=== PATIENT | male | born 1960 | race Caucasian/White ===

== ENCOUNTER 2023-01-02 13:48 | Inpatient (IN) | payer SELFPAY ==
[~2023-01-02] VITALS: Ht 182.9 cm; Wt 96.2 kg
[2023-01-02 13:48] VITALS: BP_SYST 159
[2023-01-02] MEDS ORDERED: KETOROLAC TROMETHAMINE 30 MG VIAL IVP ONE (14:15)
[2023-01-02 14:49] LABS: BASOPHILS # (AUTO) 0.1 K/uL (0.0-0.2); BASOPHILS % (AUTO) 0.6 % (0.0-2.0); EOSINOPHILS # (AUTO) 0.3 K/uL (0.0-0.4); EOSINOPHILS % (AUTO) 2.7 % (0.0-4.0); HEMATOCRIT 34.3 % (36-54); HEMOGLOBIN 11.4 g/dL (14.0-18.0); LYMPHOCYTES # (AUTO) 1.4 K/uL (1.0-5.5); LYMPHOCYTES % (AUTO) 12.8 % (20.5-51.5); MEAN CORPUSCULAR HEMOGLOBIN 30 pg (27-31); MEAN CORPUSCULAR HGB CONC 33 % (32-36); MEAN CORPUSCULAR VOLUME 91 fL (79.0-98.0); MONOCYTES # (AUTO) 0.8 K/uL (0.0-1.0); MONOCYTES % (AUTO) 7.3 % (1.7-9.3); NEUTROPHILS # (AUTO) 8.2 K/uL (1.8-7.7); NEUTROPHILS % (AUTO) 76.6 % (40.0-70.0); PLATELET COUNT (AUTO) 501 K/uL (130-430); RED BLOOD CELL COUNT(AUTO) 3.77 MIL/uL (4.2-6.2); RED CELL DISTRIBUTION WIDTH 14.2 % (9.0-15.0); WHITE BLOOD COUNT (AUTO) 10.6 K/uL (4.8-10.8)
[2023-01-02 15:10] LABS: ALANINE AMINOTRANSFERASE 35 U/L (12-78); ALBUMIN 3.2 g/dL (3.4-4.8); ANION GAP 5 (5-15); ASPARTATE AMINOTRANSFERASE 26 U/L (10-37); CALCIUM 8.8 mg/dL (8.4-11.0); CHLORIDE 99 mmol/L (98-107); CREATININE 0.85 mg/dL (0.55-1.30); GFR AFRICAN AMERICAN 118 mL/min (>90); GLUCOSE 214 mg/dL (70-99); TOTAL BILIRUBIN 0.2 mg/dL (0.0-1.0); UREA NITROGEN, BLOOD 17 mg/dL (8-21)
[2023-01-02] MEDS ORDERED: AMPICILLIN SODIUM/SULBACTAM NA 3 GM in NS 100 ML IV ONE (16:30)
[2023-01-02] MEDS ORDERED: MELO-89 PO (16:38)
[2023-01-02] MEDS ORDERED: FURO-150 PO (16:38)
[2023-01-02] MEDS ORDERED: AMIT25TA9 PO (16:38)
[2023-01-02] MEDS ORDERED: NEU300 PO (16:38)
[2023-01-02] MEDS ORDERED: GLUCOSE (DEXTROSE) ORAL GEL -Adults PO PRN (16:45)
[2023-01-02] MEDS ORDERED: D5W 1,000 ML IV PRN (16:45)
[2023-01-02] MEDS ORDERED: DEXTROSE 50% JECT 50 ML DISP.SYRIN IVP PRN (16:45)
[2023-01-02] MEDS ORDERED: AMPICILLIN SODIUM/SULBACTAM NA 3 GM VIAL ONE (17:13)
[2023-01-02 17:48] VITALS: BP_SYST 142
[2023-01-02 17:52] VITALS: BP_SYST 142
[2023-01-02 20:00] VITALS: BP_SYST 156
[2023-01-02] MEDS ORDERED: HYDROcodone/ACETAMIN 10-325 MG TAB PO PRN (22:00)
[2023-01-02] MEDS ORDERED: HYDROcodone/ACETAMIN 5-325 MG TAB (NORCO/ VICODIN) PO PRN (22:00)
[2023-01-02] MEDS ORDERED: LORazepam 2 MG/ML VIAL IVP PRN (22:00)
[2023-01-02] MEDS ORDERED: ACETAMINOPHEN 325 MG TABLET PO PRN (22:00)
[2023-01-02] MEDS ORDERED: ONDANSETRON HCL 4 MG/2 ML VIAL IVP PRN (22:00)
[2023-01-02] MEDS ORDERED: NALOXONE HCL 0.4 MG/ML AMP (NARCAN) IVP PRN ×2 (22:00)
[2023-01-02] MEDS: MELOXICAM 7.5 MG TABLET PO SCH (23:27)
[2023-01-02] MEDS: NORMAL SALINE 5 ML DISP.SYRIN IVF SCH (23:28)
[2023-01-03] VITALS: BP_SYST 141
[2023-01-03] MEDS ORDERED: AMPICILLIN SODIUM/SULBACTAM NA 1.5 GM VIAL ONE (00:01)
[2023-01-03 05:36] LABS: BASOPHILS # (AUTO) 0.1 K/uL (0.0-0.2); BASOPHILS % (AUTO) 1.2 % (0.0-2.0); EOSINOPHILS # (AUTO) 0.4 K/uL (0.0-0.4); HEMATOCRIT 32.3 % (36-54); HEMOGLOBIN 10.6 g/dL (14.0-18.0); LYMPHOCYTES # (AUTO) 1.8 K/uL (1.0-5.5); LYMPHOCYTES % (AUTO) 23.1 % (20.5-51.5); MEAN CORPUSCULAR HEMOGLOBIN 30 pg (27-31); MEAN CORPUSCULAR HGB CONC 33 % (32-36); MEAN CORPUSCULAR VOLUME 90 fL (79.0-98.0); MONOCYTES # (AUTO) 0.7 K/uL (0.0-1.0); MONOCYTES % (AUTO) 8.8 % (1.7-9.3); NEUTROPHILS # (AUTO) 4.9 K/uL (1.8-7.7); NEUTROPHILS % (AUTO) 61.9 % (40.0-70.0); PLATELET COUNT (AUTO) 476 K/uL (130-430); RED BLOOD CELL COUNT(AUTO) 3.58 MIL/uL (4.2-6.2); RED CELL DISTRIBUTION WIDTH 13.9 % (9.0-15.0); WHITE BLOOD COUNT (AUTO) 7.9 K/uL (4.8-10.8)
[2023-01-03] MEDS: AMPICILLIN SODIUM/SULBACTAM NA 1.5 GM in NS 50 ML IV SCH ×5 (05:50→18:02)
[2023-01-03] MEDS: NORMAL SALINE 5 ML DISP.SYRIN IVF SCH ×3 (05:53→21:42)
[2023-01-03 06:09] LABS: ALBUMIN 2.8 g/dL (3.4-4.8); C-REACTIVE PROTEIN QUANT 2.3 mg/dL (0-0.5); CALCIUM 8.1 mg/dL (8.4-11.0); CREATININE 0.79 mg/dL (0.55-1.30); PHOSPHORUS 3.7 mg/dL (2.7-4.5); TOTAL BILIRUBIN 0.2 mg/dL (0.0-1.0)
[2023-01-03] MEDS: INSULIN REGULAR, HUMAN 100 UNITS/ML, 3 ML VIAL (humuLIN R) SUBCUT PRN ×4 (06:38→21:40)
[2023-01-03 07:01] LABS: ERYTHROCYTE SEDIMENTATION RATE 47 MM/HR (0-15)
[2023-01-03 08:00] VITALS: BP_SYST 142
[2023-01-03] MEDS: GABAPENTIN 300 MG CAPSULE PO SCH ×2 (09:24→21:35)
[2023-01-03] MEDS: FUROSEMIDE 20 MG TABLET PO SCH (09:24)
[2023-01-03] MEDS: AMITRIPTYLINE HCL 25 MG TABLET (ELAVIL) PO SCH (09:24)
[2023-01-03] MEDS: MELOXICAM 7.5 MG TABLET PO SCH ×2 (09:27→21:36)
[2023-01-03 11:50] VITALS: BP_SYST 161
[2023-01-03 15:29] VITALS: BP_SYST 136
[2023-01-03 20:00] VITALS: BP_SYST 138
[2023-01-04] VITALS: BP_SYST 127
[2023-01-04] MEDS: AMPICILLIN SODIUM/SULBACTAM NA 1.5 GM in NS 50 ML IV SCH ×5 (01:22→23:42)
[2023-01-04 04:42] LABS: BASOPHILS # (AUTO) 0.1 K/uL (0.0-0.2); BASOPHILS % (AUTO) 1.1 % (0.0-2.0); EOSINOPHILS # (AUTO) 0.4 K/uL (0.0-0.4); EOSINOPHILS % (AUTO) 5.7 % (0.0-4.0); HEMATOCRIT 32.7 % (36-54); LYMPHOCYTES # (AUTO) 2.2 K/uL (1.0-5.5); LYMPHOCYTES % (AUTO) 32.9 % (20.5-51.5); MEAN CORPUSCULAR HEMOGLOBIN 30 pg (27-31); MEAN CORPUSCULAR HGB CONC 34 % (32-36); MEAN CORPUSCULAR VOLUME 91 fL (79.0-98.0); MONOCYTES # (AUTO) 0.7 K/uL (0.0-1.0); MONOCYTES % (AUTO) 9.9 % (1.7-9.3); NEUTROPHILS # (AUTO) 3.3 K/uL (1.8-7.7); NEUTROPHILS % (AUTO) 50.4 % (40.0-70.0); PLATELET COUNT (AUTO) 502 K/uL (130-430); RED CELL DISTRIBUTION WIDTH 13.6 % (9.0-15.0); WHITE BLOOD COUNT (AUTO) 6.6 K/uL (4.8-10.8)
[2023-01-04 04:49] LABS: C-REACTIVE PROTEIN QUANT 1.6 mg/dL (0-0.5); CALCIUM 8.8 mg/dL (8.4-11.0); CREATININE 0.78 mg/dL (0.55-1.30)
[2023-01-04 05:48] LABS: ERYTHROCYTE SEDIMENTATION RATE 34 MM/HR (0-15)
[2023-01-04] MEDS: INSULIN REGULAR, HUMAN 100 UNITS/ML, 3 ML VIAL (humuLIN R) SUBCUT PRN ×4 (06:10→21:11)
[2023-01-04] MEDS: NORMAL SALINE 5 ML DISP.SYRIN IVF SCH ×3 (06:11→21:15)
[2023-01-04 08:06] LABS: HEPATITIS B CORE AB, IgM Negative (Negative); HEPATITIS C VIRUS AB Non Reactive (Non Reactive)
[2023-01-04] MEDS: GABAPENTIN 300 MG CAPSULE PO SCH ×2 (09:56→21:11)
[2023-01-04] MEDS: AMITRIPTYLINE HCL 25 MG TABLET (ELAVIL) PO SCH (09:57)
[2023-01-04] MEDS: FUROSEMIDE 20 MG TABLET PO SCH (09:57)
[2023-01-04] MEDS: MELOXICAM 7.5 MG TABLET PO SCH ×2 (10:01→22:48)
[2023-01-04 11:12] VITALS: BP_SYST 130
[2023-01-04 15:28] VITALS: BP_SYST 135
[2023-01-05 01:19] VITALS: BP_SYST 138
[2023-01-05 05:03] LABS: BASOPHILS # (AUTO) 0.1 K/uL (0.0-0.2); EOSINOPHILS # (AUTO) 0.5 K/uL (0.0-0.4); HEMATOCRIT 33.5 % (36-54); LYMPHOCYTES # (AUTO) 2.1 K/uL (1.0-5.5); LYMPHOCYTES % (AUTO) 27.7 % (20.5-51.5); MEAN CORPUSCULAR HEMOGLOBIN 30 pg (27-31); MEAN CORPUSCULAR HGB CONC 33 % (32-36); MEAN CORPUSCULAR VOLUME 91 fL (79.0-98.0); MONOCYTES # (AUTO) 0.7 K/uL (0.0-1.0); MONOCYTES % (AUTO) 9.9 % (1.7-9.3); NEUTROPHILS # (AUTO) 4.2 K/uL (1.8-7.7); NEUTROPHILS % (AUTO) 55.4 % (40.0-70.0); PLATELET COUNT (AUTO) 500 K/uL (130-430); RED CELL DISTRIBUTION WIDTH 13.8 % (9.0-15.0); WHITE BLOOD COUNT (AUTO) 7.6 K/uL (4.8-10.8)
[2023-01-05 05:22] LABS: ALBUMIN 3.1 g/dL (3.4-4.8); C-REACTIVE PROTEIN QUANT 0.7 mg/dL (0-0.5); CALCIUM 8.6 mg/dL (8.4-11.0); CREATININE 0.78 mg/dL (0.55-1.30); TOTAL BILIRUBIN 0.2 mg/dL (0.0-1.0)
[2023-01-05] MEDS: NORMAL SALINE 5 ML DISP.SYRIN IVF SCH (06:31)
[2023-01-05] MEDS: INSULIN REGULAR, HUMAN 100 UNITS/ML, 3 ML VIAL (humuLIN R) SUBCUT PRN ×2 (06:32→11:55)
[2023-01-05 06:57] LABS: ERYTHROCYTE SEDIMENTATION RATE 29 MM/HR (0-15)
[2023-01-05] MEDS: FUROSEMIDE 20 MG TABLET PO SCH (09:24)
[2023-01-05] MEDS: GABAPENTIN 300 MG CAPSULE PO SCH (09:24)
[2023-01-05] MEDS: AMITRIPTYLINE HCL 25 MG TABLET (ELAVIL) PO SCH (09:24)
[2023-01-05] MEDS: MELOXICAM 7.5 MG TABLET PO SCH (09:25)
[2023-01-05] MEDS ORDERED: AUG875 PO (10:23)
[2023-01-05] MEDS: AMPICILLIN SODIUM/SULBACTAM NA 1.5 GM in NS 50 ML IV SCH (12:00)
[2023-01-05 12:29] VITALS: BP_SYST 137
== END 2023-01-05 17:05 | disposition home or self-care (01) | DRG 638 ==
LOC: SED 13:48 → SMU 16:32
PROVIDERS: ADMIT Preventive Medicine Preventive Medicine/Occupational Environmental Medicine; ATTEND Preventive Medicine Preventive Medicine/Occupational Environmental Medicine
DX: E11.628 Type 2 diabetes mellitus with other skin complications (principal); E87.1 Hypo-osmolality and hyponatremia; L03.115 Cellulitis of right lower limb; E11.65 Type 2 diabetes mellitus with hyperglycemia; D75.839 Thrombocytosis, unspecified; D64.9 Anemia, unspecified; E88.09 Other disorders of plasma-protein metabolism, not elsewhere classified; I89.0 Lymphedema, not elsewhere classified; I10 Essential (primary) hypertension; Z83.3 Family history of diabetes mellitus
CPT/HCPCS: 36415; 71045; 80048; 80053; 83735; 83880; 84100; 84484; 85025; 85651-TC; 86140; 86705; 86803; 87040; 87070-TC; 87075-TC; 93005; 93971; 96365; 96375; 99285; J0295; J1885